=== PATIENT | male | born 1970 | race Caucasian/White ===

== ENCOUNTER → 2016-12-25 | Outpatient (CLI) | payer BC ==
[~2016-12-25] MED LIST: AMLO1CAP5 PO; ASPI-892 PO; ASPIRIN; ATOR20TA66 PO; ATOR40TA70 PO; HCT25T PO; KCL20TCR PO; NF-ESOM40C PO; NFNEB10T PO; NFPRILOC40 PO; SIMV40TA2 PO; SULF1TAB38 PO
--- OUTSIDE RECORDS SUMMARY | 2016-12-25 10:47 | XMS REPORT | Continuity of Care Document ---
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 If you do not see the information that you expected, contact Release of Information in the Health Information Management department at [phone] for further assistance in locating additional records.[facility] Active Allergies and Adverse Reactions Allergen Noted Date Severity Reactions Comments Penicillins 02/28/2016 Medium FEVER Current Medications Prescription Sig. Disp. Refills Start End Date Status Date omeprazole DR(+) Take 40 mg by mouth Active (PRILOSEC) 40 mg capsule daily. atorvastatin (LIPITOR) 40 Take 40 mg by mouth Active mg tablet daily. amLODIPine/benazepril(+) Take by mouth daily. Active (LOTREL) 5/20 mg tablet aspirin EC 81 mg tablet Take 81 mg by mouth Active daily. nebivolol (BYSTOLIC) 10 Take 10 mg by mouth Active mg tablet daily. hydrochlorothiazide Take 25 mg by mouth Active (HYDRODIURIL) 25 mg daily. tablet Active Problems Problem Noted Date Myopia of both eyes 02/28/2016 Last Assessment & Plan: Normal anterior segment and dilated exam. Discussed findings. He's interested in LASIK and will call back to schedule evaluation. Social History Tobacco Use Types Packs/Day Years Used Date Never Smoker Alcohol Use Drinks/Week oz/Week Comments No 0 Standard 0.0 drinks or equivalent Last Filed Vital Signs Vital Sign Reading Time Taken Blood Pressure - - Pulse - - Temperature - - Respiratory Rate - - Height 1.854 m (6' 1") 02/28/2016 12:54 PM CDT Weight 108.863 kg (240 lb) 02/28/2016 12:54 PM CDT Body Mass Index 31.67 02/28/2016 12:54 PM CDT Oxygen Saturation - - Plan of Care Health Maintenance Due Date Last Done Comments Physical (Comprehensive) 1978 Exam Pertussis Vaccine 1982 Tetanus Vaccine 1988 Influenza Vaccine 08/02/2016 Results from Last 3 Months Not on file
--- NOTE | 2016-12-25 11:57 | Diagnostic Imaging Report ---
INDICATION: Scrotal ultrasound. INDICATION: Nontender lump along left testicle. Spectral color flow imaging of the testicles was performed. There are no prior studies available for comparison. FINDINGS: Both testicles were identified. Right testicle measures 4.4 x 2.2 x 3.0 CM while the left testicle is estimated to be 4.4 x 2.1 x 3.0 CM. There is no evidence for a solid testicular mass and there is no sign of torsion. Along the inferior margin of the tail of the epididymis on the left there is a 1.6 x 1.2 x 1.4 CM avascular hypoechoic mass. Most likely this corresponds to the patient's palpable abnormality. This finding is of uncertain etiology but could be neoplastic in nature. A urologic consult would be recommended. There is no hyperemia of the epididymis on left to suggest epididymitis. The epididymis on the right is unremarkable. There is no significant hydrocele formation. IMPRESSION: 1. There is no evidence for a solid testicular mass or for a torsion. 2. The small 1.6 x 1.2 x 1.4 CM avascular hypoechoic mass in the tail of the epididymis on the left is of uncertain etiology. This could be neoplastic in nature however. A urologic consult would be recommended. Dictated by: Dictated on workstation # [id number]
== END ==
LOC: RAD 10:43
PROVIDERS: ATTEND Nurse Practitioner Family
DX: N50.812 Left testicular pain (principal)
CPT/HCPCS: 76870

== ENCOUNTER 2022-08-15 05:36 | Outpatient (CLI) | payer BC ==
[~2022-08-15] VITALS: Ht 185.4 cm; Wt 108.9 kg
[2022-08-15] MEDS ORDERED: NF-VITD400 PO (08:32)
[2022-08-15] MEDS ORDERED: ASCO250T16 PO (08:32)
== END 2022-08-15 08:34 | disposition home or self-care (01) ==
LOC: PREOP 05:36
PROVIDERS: ATTEND Surgery
DX: Z01.818 Encounter for other preprocedural examination (principal)

== ENCOUNTER 2022-08-22 09:13 | Day surgery (SDC) | payer BC ==
[~2022-08-22] VITALS: Ht 185.4 cm; Wt 108.9 kg
[~2022-08-22 09:13] MED LIST changes: +ASCO250T16 PO; +NF-VITD400 PO
[2022-08-22] MEDS ORDERED: LACTATED RINGERS 1,000 ML IV STA (09:17)
[2022-08-22 09:30] VITALS: BP 134/92
[2022-08-22] MEDS ORDERED: LIDOCAINE JELLY 2% 6 ML SYRINGE MM PRN (09:30)
[2022-08-22] MEDS ORDERED: PROPOFOL INJECTION 50 ML IV ONE ×2 (10:29→10:56)
--- NOTE | 2022-08-22 10:43 | Progress Note-Pre Operative ---
Pre-Operative Progress Note Date of Available H&P: Aug 22, 2022 Date H&P Reviewed: Aug 22, 2022 Time H&P Reviewed: 10:00 History & Physical: No changes noted Pre-Operative Diagnosis: screening o JOSE A BRENNER MD Aug 22, 2022 10:43
--- NOTE | 2022-08-22 10:44 | Discharge Inst-Surgical ---
D/C Lap Instructions-ELIDIA Follow Up Activity as tolerated High Fiber Diet 25g or more per day Avoid Alcohol, Caffeine, Spicy [place] and Acid foods. Drink 64 fluid oz or more of fluids per day. Symptoms to Report: Fever over 101 degree F, Nausea/Vomiting If any problems/questions: Contact your physician or go to Emergency Room JOSE A BRENNER MD Aug 22, 2022 10:44
[2022-08-22] MEDS ORDERED: ONDANSETRON 4 MG/2 ML (SDV) Z0FRAN IVP PRN (10:45)
[2022-08-22] MEDS ORDERED: ONDANSETRON 4 MG (ZOFRAN) ORAL DISSOLVE TAB PO PRN (10:45)
--- NOTE | 2022-08-22 11:04 | Anesthesia-General Post-Op ---
MAC Patient Condition Mental Status/LOC: Same as Preop Cardiovascular: Satisfactory Nausea/Vomiting: Absent Respiratory: Satisfactory Pain: Controlled Complications: Absent Post Op Complications Complications None Follow Up Care/Instructions Patient Instructions None needed. Anesthesiology Discharge Order Discharge Order Patient is doing well, no complaints, stable vital signs, no apparent adverse anesthesia problems. No complications reported per nursing. DEXTER WALTON CRNA Aug 22, 2022 11:04
[2022-08-22 11:05] VITALS: BP 82/51
[2022-08-22 11:10] VITALS: BP 81/51
[2022-08-22 11:15] VITALS: BP 93/50
--- NOTE | 2022-08-22 11:15 | Progress Note-Post Operative ---
Post-Operative Progess Note Surgeon (s)/Manager Business Operations (s) Surgeon JOSE A BRENNER MD Manager Business Operations: none Pre-Operative Diagnosis screening colo Post-Operative Diagnosis normal colon and rectum Procedure & Operative Findings Date of Procedure 08/22/22 Procedure Performed/Findings colonoscopy Anesthesia Type mac Estimated Blood Loss Estimated blood loss (mL): minimal Specimens/Packing Specimens Removed none JOSE A BRENNER MD Aug 22, 2022 11:15
[2022-08-22 11:30] VITALS: BP 98/69
[2022-08-22 11:37] VITALS: BP 93/50
--- NOTE | 2022-08-22 19:11 | OPERATIVE REPORT ---
DATE OF SERVICE: 08/22/2022 ATTENDING PRIMARY CARE PHYSICIAN: Dr. Dali Parikh. PREOPERATIVE DIAGNOSIS: Screening colonoscopy. POSTOPERATIVE DIAGNOSIS: Normal colon and rectum. PROCEDURE: Colonoscopy. SURGEON: Jose A Brenner MD. ANESTHESIA: Monitored anesthesia care. ESTIMATED BLOOD LOSS: Minimal. FINDINGS: Normal colon and rectum. DISPOSITION: The patient tolerated the procedure well. INDICATIONS: The patient is a 52-year-old male referred over to us for screening colonoscopy. He states for the most part he is doing well. He does not report any major issues with diarrhea nor constipation as well as no red blood per rectum nor any dark tarry stools. He also does not report any major issues with diarrhea nor constipation and does not have any family history of colon cancer. DESCRIPTION OF PROCEDURE: The patient was brought to the endoscopy suite, laid in left lateral decubitus position. After adequate IV pain and sedative medications and monitored anesthesia care, a digital rectal examination was performed. No significant hemorrhoids were identified. Normal sphincter tone was felt and there were no palpable masses. Prostate gland was palpable and appeared normal. The endoscope was then intubated to the anus and rectum gently insufflated. The endoscope was then advanced to the [facility] with no polyps or any neoplasms identified. We then proceeded through the sigmoid colon where no diverticulosis identified. The endoscope was then advanced to the remainder of the descending, transverse and ascending colon to the cecum, which were normal. No polyps or any neoplasms identified. The endoscope was then slowly withdrawn while taking a second look and suctioning of residual air with no additional findings. The patient tolerated the procedure well. We will recommend continued medical management with a high fiber diet with addition of a fiber supplement, which should equal or exceed 30 grams daily as well as significant amounts of water to promote soft stools on a daily basis. If he is asymptomatic, he does not need another colonoscopy for another 10 years. Job ID: [id number] DocumentID: [id number] Dictated Date: 08/22/2022 11:08:55 Flight Attendant Date: 08/22/2022 19:11:24 Dictated By: JOSE A BRENNER MD
== END 2022-08-22 11:37 | disposition home or self-care (01) ==
LOC: ENDO 09:13
PROVIDERS: ATTEND Surgery
DX: Z12.11 Encounter for screening for malignant neoplasm of colon (principal); Z79.82 Long term (current) use of aspirin

== ENCOUNTER → 2023-01-23 | Outpatient (CLI) | payer BC ==
[2023-01-23 09:14] LABS: ALBUMIN 3.9 GM/DL (3.2-4.5); POTASSIUM 4.3 MMOL/L (3.6-5.0)
[2023-01-23 09:16] LABS: TOTAL PROTEIN 7.5 GM/DL (6.4-8.2)
[2023-01-23 09:18] LABS: BILIRUBIN,TOTAL 0.6 MG/DL (0.1-1.0)
[2023-01-23 09:20] LABS: CREATININE SERUM 2.79 MG/DL (0.60-1.30)
[2023-01-23 09:23] LABS: CALCIUM 14.4 MG/DL (8.5-10.1)
== END ==
LOC: LAB 08:05
PROVIDERS: ATTEND Nurse Practitioner Family
DX: R79.89 Other specified abnormal findings of blood chemistry (principal)
CPT/HCPCS: 36415; 80053

== ENCOUNTER → 2023-02-08 | Outpatient (CLI) | payer BC ==
--- NOTE | 2023-02-08 16:17 | Diagnostic Imaging Report ---
PROCEDURE: US renal bilateral. TECHNIQUE: Multiple real-time grayscale images were obtained over the kidneys in various projections, bilaterally. INDICATION: Renal failure. FINDINGS: Right kidney measures 11.2 x 6.3 x 6.3 cm. Left kidney measures 12.7 x 5.3 x 5.0 cm. There is no mass, calculus or hydronephrosis in either kidney. Urinary bladder had a prevoid volume of 383 mL and postvoid volume of 13 mL. Both ureteral jets are seen. IMPRESSION: Normal renal ultrasound. Dictated by: Dictated on workstation # [id number]
== END ==
LOC: RAD 12:36
PROVIDERS: ATTEND Nurse Practitioner Family
DX: N17.9 Acute kidney failure, unspecified (principal); I10 Essential (primary) hypertension; E78.5 Hyperlipidemia, unspecified
CPT/HCPCS: 76770